=== PATIENT | female | born 1950 | race Caucasian/White ===

== ENCOUNTER → 2017-11-05 | Outpatient (CLI) | payer BC ==
--- NOTE | 2017-11-05 13:25 | MR ---
EXAMINATION TYPE: MR knee RT wo con DATE OF EXAM: 11/05/2017 COMPARISON: Plain film 10/12/2017 HISTORY: Pain in right knee TECHNIQUE: Multiplanar, multisequence imaging of the knee is performed without IV contrast. FINDINGS: MEDIAL MENISCUS: Posterior horn the medial meniscus shows some increased signal, difficult to exclude extension to the articular surface, sagittal #6 and 7 LATERAL MENISCUS: Some increased signal present in the posterior horn of the lateral meniscus may ext end to the articular surface on sagittal image 22 posteriorly, anterior horn is attenuated CRUCIATE LIGAMENTS: The anterior and posterior cruciate ligaments are intact and unremarkable. COLLATERAL LIGAMENTS: The medial collateral ligament and lateral collateral ligament complex are inta ct and unremarkable. EXTENSOR MECHANISM: Visualized quadriceps and patellar tendons are intact. EFFUSION: Suprapatellar joint effusion is small. POPLITEAL CYST: Semimembranosus gastrocnemius cyst is present measuring approximately 2.1 x 6 x 0.7 cm. TRICOMPARTMENT SPACES: Some joint space loss present in the lateral compartment greater than medial CARTILAGE: Grade 3 to grade IV chondromalacia lateral compartment and posterior patella BONE MARROW SIGNAL: Subchondral reactive marrow signal change suspected in the proximal tibia lateral ly OTHER: There is fluid signal noted posterior to the proximal fibula. Fluid signal present at the zaira gin of the gastrocnemius tendon lateral belly may be indicative of ganglion or tear, similar findings present at the medial belly origin which shows fluid signal as well as multi lobular cystic collecti on extending towards the metaphysis of the distal femur measuring 16 mm in greatest dimension with in ternal septation. IMPRESSION: Osteoarthritis and degenerative changes are suspected. Difficult to exclude meniscal tear, signal wit hin the posterior horns of the medial lateral menisci may be degenerative. Possible chronic tear of t he origin of the gastrocnemius tendon is medial lateral belly cyst described. Semimembranosus gastroc nemius cyst. Additional findings above.
== END ==
LOC: RADMRIMAIN 11:19
PROVIDERS: ATTEND Orthopaedic Surgery
DX: M25.461 Effusion, right knee (principal); M22.41 Chondromalacia patellae, right knee; R93.7 Abnormal findings on diagnostic imaging of other parts of musculoskeletal system

== ENCOUNTER → 2019-05-26 | Outpatient (CLI) | payer MEDICARE, BC ==
[2019-05-26 12:26] LABS: Potassium 4.8 mmol/L (3.5-5.1)
[2019-05-26 12:58] LABS: Basophils # (A) 0.1 k/uL (0-0.2); Basophils % (A) 1 %; Eosinophils # (A) 0.2 k/uL (0-0.7); Eosinophils % (A) 1 %; HCT 44.7 % (34.0-46.0); HGB 14.8 gm/dL (11.4-16.0); Lymphocytes # (A) 3.2 k/uL (1.0-4.8); Lymphocytes % (A) 26 %; MCH 29.9 pg (25.0-35.0); MCHC 33.1 g/dL (31.0-37.0); MCV 90.4 fL (80.0-100.0); Mean Platelet Volume 8.5; Monocytes # (A) 0.7 k/uL (0-1.0); Monocytes % (A) 6 %; Neutrophils # (A) 7.7 k/uL (1.3-7.7); Neutrophils % (A) 64 %; Platelet Count 289 k/uL (150-450); RBC 4.94 m/uL (3.80-5.40); RDW 12.2 % (11.5-15.5); WBC 12.1 k/uL (3.8-10.6)
== END | disposition home or self-care (01) ==
LOC: LABPAT 11:21
PROVIDERS: ATTEND Orthopaedic Surgery
DX: Z01.812 Encounter for preprocedural laboratory examination (principal); G56.02 Carpal tunnel syndrome, left upper limb
CPT/HCPCS: 36415; 80051; 85025

== ENCOUNTER 2019-06-08 14:11 | Day surgery (SDC) | payer MEDICARE, BC ==
[2019-06-07 09:14] VITALS: BMI 32.4
--- NOTE | 2019-06-07 14:59 | HP ---
HISTORY AND PHYSICAL DATE OF SURGERY: 06/08/2019 Bette Toscano is a 68-year-old patient seen with symptomatic left carpal tunnel syndrome. We discussed options for treatment. She elected to proceed with decompression left median nerve. Consent was obtained. PAST MEDICAL HISTORY: Hypertension, hyperlipidemia, yaz-grdlfho-fbjpsklph diabetes. PAST SURGICAL HISTORY: Appendectomy, carpal tunnel release, Cesarian section, lumpectomy. MEDICATIONS: Metoprolol, trazodone, Vytorin, metformin. ALLERGIES: None SOCIAL HISTORY: She currently smokes cigarettes. PHYSICAL EVALUATION OF THE LEFT HAND: She has a positive carpal compression and carpal Tinel's, which causes numbness and tingling throughout the median nerve distribution. There is some decreased sensation throughout the median nerve distribution. She is nontender along the A1 kirit site. She has good range of motion of her digits. RADIOGRAPHS OF THE LEFT HAND: Reveals some osteoarthritic changes an EMG left upper extremity revealed carpal tunnel syndrome. IMPRESSION: 1. Left carpal tunnel syndrome. 2. Hypertension. 3. Afu-ggaytcr-dgrkbivhx diabetes. 4. Hyperlipidemia. PLAN: Decompression of left median nerve. MMODL / IJN: [id number] /
[~2019-06-08 14:11] MED LIST: DEXAMETHASONE SOD PHOSPHATE 10 MG/ML 1 ML VIAL IV ONE; HYDROmorphone 0.5 MG/0.5 ML SYRINGE IVP PRN; LACTATED RINGERS 1,000 ML IV SCH; LIDOCAINE 1% 20 ML VIAL (10MG/ML) FOR IV START INTRADERMA PRN
[2019-06-08 14:50] VITALS: TEMP 97
[2019-06-08 14:55] LABS: Glucose,Whole Blood 133 mg/dL (75-99)
[2019-06-08] MEDS ORDERED: ONDANSETRON 4 MG/2 ML VIAL IVP ONE (14:59)
[2019-06-08] MEDS ORDERED: fentaNYL (PF) 50 MCG/ML 2 ML AMP ONE (17:03)
[2019-06-08] MEDS ORDERED: PROPOFOL 10 MG/ML 20 ML VIAL IV ONE (17:03)
[2019-06-08] MEDS ORDERED: MIDAZOLAM 2 MG/2 ML VIAL ONE (17:03)
[2019-06-08] MEDS ORDERED: BUPIVACAINE (PF) 0.25% 30 ML VIAL SQ ONE (17:06)
[2019-06-08] MEDS ORDERED: LACTATED RINGERS 1,000 ML IV ONE (17:37)
--- NOTE | 2019-06-08 17:37 | P.OP ---
Date of Procedure: 06/08/19 Preoperative Diagnosis: Left carpal tunnel syndrome Postoperative Diagnosis: Left carpal tunnel syndrome Procedure(s) Performed: Decompression left median nerve Anesthesia: MAC, local Surgeon: Pipe Dickson Estimated Blood Loss (ml): 0 Pathology: none sent Condition: stable Disposition: PACU Indications for Procedure: 68-year-old patient seen with symptomatic left carpal tunnel syndrome. After having treatment options discussed, she elected to proceed with decompression left median nerve. Operative Findings: See description of procedure Description of Procedure: The patient was taken to the operative suite. The patient received preoperative IV antibiotics. The patient underwent IV sedation by the department of anesthesia. A well-padded tourniquet placed proximal left upper extremity. Left upper extremity prepped and draped in the normal sterile orthopedic fashion. The proposed incision site was infiltrated with 10 mL quarter percent plain Marcaine. Once sufficient local analgesia was noted the extremity was elevated and tourniquet insufflated to 250. An incision was now made beginning at the distal volar wrist crease extending distally approximately 3 cm in line with the fourth metacarpal sharply through skin. We dissected down through the palmar fascia and identified the transverse carpal ligament. I now made a small incision through the transverse carpal ligament. I completed the release proximally and distally with blunt Metzenbaums. There was good complete release of the transverse carpal ligament. There was good hemostasis. The wound was irrigated. Skin margins were proximal nylon suture. We applied sterile dressings and sterile web roll. The tourniquet was released. Good capillary refill noted to all digits. Sterile Kendall bandages was applied. The patient was awakened, transferred to recovery stable condition.
[2019-06-08 17:51] VITALS: RESP 20
[2019-06-08 18:35] VITALS: BP 107/77; PULSE 88
== END 2019-06-08 18:40 | disposition home or self-care (01) ==
LOC: OR 14:11
PROVIDERS: ATTEND Orthopaedic Surgery
DX: G56.02 Carpal tunnel syndrome, left upper limb (principal); I25.10 Atherosclerotic heart disease of native coronary artery without angina pectoris; I10 Essential (primary) hypertension; E78.5 Hyperlipidemia, unspecified; E11.9 Type 2 diabetes mellitus without complications; F17.210 Nicotine dependence, cigarettes, uncomplicated; Z97.2 Presence of dental prosthetic device (complete) (partial); Z83.6 Family history of other diseases of the respiratory system; Z79.84 Long term (current) use of oral hypoglycemic drugs; Z79.899 Other long term (current) drug therapy; Z79.82 Long term (current) use of aspirin; Z91.040 Latex allergy status
CPT/HCPCS: 64721; J2250; J1100; J0690; J2405; J3010; J2704

== ENCOUNTER → 2019-11-15 | Outpatient (CLI) | payer MEDICARE, BC ==
--- NOTE | 2019-11-15 12:47 | BD ---
EXAMINATION TYPE: Axial Bone Density DATE OF EXAM: 11/15/2019 COMPARISON: 12.12.2013 CLINICAL HISTORY: 68 YR OLD FEMALE....ICD-10 CODE: Z78.0 POST MENOPAUSAL Height: 63 Weight: 199 FRAX RISK QUESTIONS: Family History (Parent hip fracture): YES Secondary Osteoporosis: YES 3. Menopause before 45: YES, AT AGE 45 Current Tobacco Use: YES RISK FACTORS HISTORY OF: Family History of Osteoporosis: YES, MOTHER HIP FX AND BONE CA TO FOLLOW Postmenopausal woman: YES, AT AGE 45 Take estrogen and/or progesterone medications: YES IN THE PAST, 1-2 YRS ONLY Lost more than 2 inches in height since high school: YES Hyperparathyroidism: NO Adrenal Insufficiency: NO MEDICATIONS: Additional Medications: MULTIVITAMIN, METFORMIN, REFLUX MEDS, STATIN FOR CHOLESTEROL, SLEEP AID THAT IS AN ANTIDEPRESSANT, BP MEDS, ASPIRIN HIGH DOSE Additional History: HYPERTENSION, DIABETIC, REFLUX, CHOLESTEROL, OSTEOARTHRITIS, EXAM MEASUREMENTS: Bone mineral densitometry was performed using the [employer] System. Bone mineral density as measured about the Lumbar spine is: ----- L1-L4(G/cm2): 0.986 T Score Values are as follows: ----- L1: -1.7 ----- L2: -2.0 ----- L3: -1.8 ----- L4: -1.2 ----- L1-L4: -1.6 Bone mineral density has: Decreased -7.1% since study of: 12.12.2013 Bone mineral density about the R hip (g/cm2): 0.868 Bone mineral density about the L hip (g/cm2): 0.919 T Score values are as follows: -----R Neck: -1.6 -----L Neck: -0.9 -----R Total: -1.1 -----L Total: -0.7 Bone mineral density has: Increased 1.9% since study of: 12.12.2013 FRAX%s: THERE IS A 15.9% CHANCE FOR A MAJOR OSTEOPOROTIC FX AND A 2.5% FOR HIP.....PROBABILITY FOR FX IN 10 YRS TIME IMPRESSION: Osteopenia NOTE: T-SCORE=SD OF THE YOUNG ADULT MEAN.
--- NOTE | 2019-11-16 09:15 | MM ---
Reason for exam: screening (asymptomatic). Last mammogram was performed 4 years and 7 months ago. History: Patient is postmenopausal, has history of high-risk lesion on a previous biopsy at age 59, and had first child at age 37. Family history of breast cancer in mother at age 60 and breast cancer in paternal grandmother at age 70. High risk US right guided VAD of the right breast, August 11, 2010. Benign left mammotome panel of the left breast, August 21, 2005. Benign excisional biopsy of the right breast, 1989. Benign excisional biopsy of the right breast, 1979. Took estrogen for 1 year beginning at age 46. Physical Findings: A clinical breast exam by your physician is recommended on an annual basis and results should be correlated with mammographic findings. MG 3D Screening Mammo W/Cad Bilateral CC and MLO view(s) were taken. Prior study comparison: April 19, 2015, bilateral MG screening mammo w CAD. There are scattered fibroglandular densities. No significant changes when compared with prior studies. ASSESSMENT: Benign, BI-RAD 2 RECOMMENDATION: Routine screening mammogram of both breasts in 1 year.
== END | disposition home or self-care (01) ==
LOC: RADMAMWWP 09:34
PROVIDERS: ATTEND Family Medicine
DX: Z12.31 Encounter for screening mammogram for malignant neoplasm of breast (principal); M81.8 Other osteoporosis without current pathological fracture; Z78.0 Asymptomatic menopausal state
CPT/HCPCS: 77063; 77067; 77080

== ENCOUNTER → 2020-04-09 | Outpatient (CLI) | payer MEDICARE, BC ==
[2020-04-09 20:22] LABS: Hemoglobin A1C 5.9 % (4.0-6.0)
[2020-04-09 20:55] LABS: African American GFR (CKD) 103.9 (60.0-200.0); Albumin 4.4 g/dL (3.80-4.90); Albumin/Globulin Ratio 3.14 (1.60-3.17); Anion Gap 10.5 mmol/L (4.00-12.00); Calcium 9.7 mg/dL (8.7-10.3); Carbon Dioxide 24.5 mmol/L (21.6-31.8); Chol/HDL Ratio 3.24; Globulin 1.4 g/dL (1.6-3.3); LDL Cholesterol,Calculated 31.8 mg/dL (0.0-131.0); Non-African American GFR(CKD) 89.7 (60.0-200.0); Potassium 4.3 mmol/L (3.5-5.5); Total Bilirubin 0.4 mg/dL (0.2-1.2); Total Protein 5.8 g/dL (6.2-8.2); VLDL Calculation 44.2 mg/dL (5.00-40.00)
== END | disposition home or self-care (01) ==
LOC: LABWHC1 10:10
PROVIDERS: ATTEND Family Medicine
DX: I10 Essential (primary) hypertension (principal); E11.40 Type 2 diabetes mellitus with diabetic neuropathy, unspecified; E78.00 Pure hypercholesterolemia, unspecified
CPT/HCPCS: 36415; 80053; 80061; 83036

== ENCOUNTER → 2020-06-26 | Outpatient (CLI) | payer MEDICARE ==
--- NOTE | 2020-06-26 16:20 | US ---
EXAMINATION TYPE: US kidneys/renal and bladder DATE OF EXAM: 06/26/2020 COMPARISON: NONE CLINICAL HISTORY: R10.9 Rt Flank Pain. rt flank pain EXAM MEASUREMENTS: Right Kidney: 9.4 x 4.7 x 5.5 cm Left Kidney: 10.0 x 4.8 x 7.1 cm Right Kidney: multiple cysts,largest = 4.7cm laterally , dominant cyst is anechoic and shows increase d through transmission, imperceptible wall as does a smaller Left Kidney: 2.7cm inferior pole cyst seen is also meeting criteria for a simple cyst Bladder: Anechoic, contracted Cortical medullary differentiation is maintained bilaterally. IMPRESSION: Simple cysts bilateral kidneys
== END | disposition home or self-care (01) ==
LOC: RADUSWWP 13:28
PROVIDERS: ATTEND Family Medicine
DX: N28.1 Cyst of kidney, acquired (principal)
CPT/HCPCS: 76770

== ENCOUNTER 2020-10-18 16:38 | Emergency (ER) | payer MEDICARE ==
[2020-10-18 16:42] VITALS: RESP 18
[2020-10-18] MEDS ORDERED: LIDOCAINE 5% PATCH TOPICAL STA (17:11)
--- NOTE | 2020-10-18 18:11 | XR ---
EXAMINATION TYPE: XR ribs RT w pa chest xray DATE OF EXAM: 10/18/2020 COMPARISON: NONE HISTORY: Right lateral rib pain TECHNIQUE: 5 views FINDINGS: The heart and mediastinum are normal. Lungs are clear of infiltrate. There is no heart fail ure. There is focal scarring or subsegmental atelectasis left lung base. There is no pleural effusion . There is no pneumothorax. The right shoulder joint appears intact. There is slight widening of the AC joint space that could relate to old ligamentous injury. I see no evidence of a rib fracture. IMPRESSION: No active cardiopulmonary disease. No evidence of rib fracture.
--- NOTE | 2020-10-18 18:20 | ED ---
Abdominal Pain HPI - General Chief Complaint: Abdominal Pain Stated Complaint: rt sided abd pain Time Seen by Provider: 10/18/20 16:47 Source: patient Mode of arrival: ambulatory Limitations: no limitations - History of Present Illness Initial Comments: 69-year-old female presents to emergency Department with a chief complaint of right-sided rib pain. States the pain has been ongoing for the past several months. States over a month ago she's had an ultrasound of the right upper quadrant areas, kidneys and an x-ray of the right-sided ribs with no acute finding. States she also seen a urologist who does not believe her pain is coming from the kidneys. Patient states the pain seems to be positional in nature and exacerbated when the area is palpated. She states the pain is sharp and feels like spasms. She denies any chest pain or shortness of breath fevers or chills. Denies any diaphoretic episodes nausea vomiting diarrhea. Pain does not appear to be postprandial in nature. Denies any urinary or vaginal symptoms. - Related Data Home Medications Medication Instructions Recorded Confirmed Aspirin 325 mg PO DAILY 04/24/14 06/08/19 Ezetimibe/Simvastatin [Vytorin 1 each PO HS 04/24/14 06/08/19 10-40 mg Tablet] Metoprolol Tartrate [Lopressor] 50 mg PO BID 04/24/14 06/08/19 Multivitamins, Thera [Multivitamin] 1 each PO DAILY 04/24/14 06/08/19 traZODone HCL 100 mg PO HS 04/24/14 06/08/19 metFORMIN HCL [Glucophage] 500 mg PO BID 11/01/18 06/08/19 traZODone HCL 50 mg PO QAM 06/07/19 06/08/19 Previous Rx's Medication Instructions Recorded Hydrocodone/Acetaminophen [[place] 1 each PO Q6HR PRN #12 tab 06/08/19 5-325] Allergies Allergy/AdvReac Type Severity Reaction Status Date / Time latex Allergy Unknown Rash/Hives Verified 10/18/20 16:43 Review of Systems ROS Statement: Those systems with pertinent positive or pertinent negative responses have been documented in the HPI. ROS Other: All systems not noted in ROS Statement are negative. Past Medical History Past Medical History: Diabetes Mellitus, Hyperlipidemia, Hypertension History of Any Multi-Drug Resistant Organisms: None Reported Past Surgical History: Appendectomy, Section, Tonsillectomy Past Psychological History: No Psychological Hx Reported Smoking Status: Never smoker Past Alcohol Use History: None Reported Past Drug Use History: None Reported General Exam Limitations: no limitations General appearance: alert, in no apparent distress Head exam: Present: atraumatic, normocephalic, normal inspection Eye exam: Present: normal appearance, PERRL, EOMI Pupils: Present: normal accommodation ENT exam: Present: normal exam, normal oropharynx, mucous membranes moist Neck exam: Present: normal inspection, full ROM. Absent: tenderness Respiratory exam: Present: normal lung sounds bilaterally, chest wall tenderness (Localized tenderness over the lateral right ribs.). Absent: respiratory distress, wheezes, rales, rhonchi, stridor Cardiovascular Exam: Present: regular rate, normal rhythm, normal heart sounds. Absent: systolic murmur GI/Abdominal exam: Present: soft. Absent: distended, tenderness (No right upper quadrant tenderness), guarding Extremities exam: Present: normal inspection, full ROM, normal capillary refill. Absent: tenderness, pedal edema, joint swelling Back exam: Present: normal inspection, full ROM. Absent: tenderness, CVA tenderness (R), CVA tenderness (L) Neurological exam: Present: alert, oriented X3 Psychiatric exam: Present: normal affect, normal mood Skin exam: Present: warm, dry, intact, normal color Course Vital Signs 10/18/20 10/18/20 16:39 16:52 Temperature 97.9 F 99.2 F Pulse Rate 79 76 Respiratory 18 18 Rate Blood Pressure 146/73 147/68 O2 Sat by Pulse 98 96 Oximetry Medical Decision Making - Medical Decision Making 69-year-old female presents to the emergency department with a chief complaint of right-sided rib pain. Physical examination, localized tenderness to the right lateral ribs. There is no overlying skin changes. She does not think chest pain or shortness of breath. Vital signs are within normal limits. Patient is given a Lidoderm patch with some improvement in symptoms. X-ray of the right side of the ribs and chest seems to be unremarkable. I suspect is musculoskeletal pain. Patient will be discharged with Flexeril. Advised to follow with the primary care physician. Return parameters were thoroughly discussed the patient was in a standing agreeable. Case discussed with Dr.Bay craig Disposition Clinical Impression: Rib pain on right side Disposition: HOME SELF-CARE Condition: Stable Instructions (If sedation given, give patient instructions): Rib Contusion (ED) Additional Instructions: Alternate between Tylenol and Motrin for pain control. Take prescribed medication as directed. Return to emergency department if symptoms worsen. Is patient prescribed a controlled substance at d/c from ED?: No Referrals: Lexii Stuart MD [Primary Care Provider] - 1-2 days Time of Disposition: 18:23
[2020-10-18] MEDS ORDERED: ACET/COD 300 MG/30 MG STARTER PACK 6 TAB BTL PO STA (18:23)
[2020-10-18 18:27] VITALS: BP 117/85; PULSE 75
[2020-10-18] MEDS ORDERED: CYCLOBENZAPRINE 10MG STARTER 3 TAB BTL PO STA (18:27)
[2020-10-18 18:31] VITALS: TEMP 97.8
== END 2020-10-18 18:40 | disposition home or self-care (01) ==
LOC: EC 16:38
DX: R07.81 Pleurodynia (principal); E11.9 Type 2 diabetes mellitus without complications; E78.5 Hyperlipidemia, unspecified; I10 Essential (primary) hypertension; Z90.89 Acquired absence of other organs; Z90.09 Acquired absence of other part of head and neck; Z79.82 Long term (current) use of aspirin; Z79.84 Long term (current) use of oral hypoglycemic drugs
CPT/HCPCS: 99283

== ENCOUNTER → 2022-01-06 | Outpatient (CLI) | payer MEDICARE ==
--- NOTE | 2022-01-16 09:54 | MM ---
Reason for Exam: Screening (asymptomatic). Last mammogram was performed 2 year(s) and 2 month(s) ago. Patient History: Menarche at age 14. First Full-Term at age 37. Late child-bearing (after 30). Postmenopausal. Estrogen for 1 year from age 46 until age 47. 1989, Benign Excisional Biopsy on the right side. 1979, Benign Excisional Biopsy on the right side. 08/11/2010, High risk Core Biopsy on the right side. 08/21/2005, Benign Core Biopsy on the left side. Paternal grandmother had breast cancer, age 70. Mother had breast cancer, age 60. Risk Values: Santa 5 year model risk: 5.2%. NCI Lifetime model risk: 15.3%. Prior Study Comparison: 12/21/2013 Left Diagnostic Mammogram, [facility]. 04/19/2015 Bilateral Screening Mammogram, [facility]. 11/15/2019 Bilateral Screening Mammogram, [facility]. Tissue Density: The breast tissue is heterogeneously dense. This may lower the sensitivity of mammography. Findings: Analyzed By CAD. There is no suspicious group of microcalcifications or new suspicious mass in either breast. Overall Assessment: Benign, BI-RAD 2 Management: Screening Mammogram of both breasts in 1 year. A clinical breast exam by your physician is recommended on an annual basis and results should be correlated with mammographic findings. Electronically signed and approved by: Ricardo Francois M.D. Radiologis
== END | disposition home or self-care (01) ==
LOC: RADMAMWWP 21:22
PROVIDERS: ATTEND Family Medicine
DX: Z12.31 Encounter for screening mammogram for malignant neoplasm of breast (principal)
CPT/HCPCS: 77063; 77067

== ENCOUNTER 2022-01-29 09:24 | Day surgery (SDC) | payer MEDICARE ==
[2022-01-27 15:26] VITALS: BMI 33.3
[~2022-01-29 09:24] MED LIST changes: -DEXAMETHASONE SOD PHOSPHATE 10 MG/ML 1 ML VIAL IV ONE; -HYDROmorphone 0.5 MG/0.5 ML SYRINGE IVP PRN; +LIDOCAINE 1% (10MG/ML) FOR IV START INTRADERMA PRN; -LIDOCAINE 1% 20 ML VIAL (10MG/ML) FOR IV START INTRADERMA PRN
[2022-01-29] MEDS ORDERED: LACTATED RINGERS 1,000 ML IV ONE (09:44)
[2022-01-29 09:46] VITALS: TEMP 97.3
[2022-01-29 09:54] LABS: Glucose,Whole Blood 172 mg/dL (70-110)
[2022-01-29] MEDS ORDERED: PROPOFOL 10 MG/ML 20 ML VIAL IV ONE (10:27)
--- NOTE | 2022-01-29 10:29 | P.GSHP ---
History of Present Illness H&P Date: 01/29/22 Chief Complaint: Screening colonoscopy Is a 71-year-old female who presents today for screening colonoscopy. Patient denies any significant GI complaints. Past Medical History Past Medical History: Diabetes Mellitus, Hyperlipidemia, Hypertension Additional Past Medical History / Comment(s): DIABETIC NEUROPATHY History of Any Multi-Drug Resistant Organisms: None Reported Past Surgical History: Appendectomy, Section, Heart Catheterization, Orthopedic Surgery, Tonsillectomy, Tubal Ligation Additional Past Surgical History / Comment(s): COLONOSCOPY. MULTIPLE HEART CATHS. BILAT CTR. RT ROTATOR CUFF REPAIR. RT BREAST LUMPECTOMY-BENIGN. BILAT CATARACTS REMOVED WITH LENS IMPLANTS Past Anesthesia/Blood Transfusion Reactions: No Reported Reaction Smoking Status: Current every day smoker - Past Family History Sister(s) Family Medical History: Cancer Additional Family Medical History / Comment(s): BLADDER Brother(s) Family Medical History: Cancer Additional Family Medical History / Comment(s): STOMACH Mother Family Medical History: Cancer Additional Family Medical History / Comment(s): BREAST CANCER WITH METS Medications and Allergies Home Medications Medication Instructions Recorded Confirmed Type Aspirin 325 mg PO DAILY 04/24/14 01/27/22 History Ezetimibe/Simvastatin [Vytorin 1 each PO Q2D 04/24/14 01/27/22 History 10-40 mg Tablet] Metoprolol Tartrate [Lopressor] 50 mg PO BID 04/24/14 01/27/22 History metFORMIN HCL [Glucophage] 1,000 mg PO [id number]-[id number] 11/01/18 01/27/22 History traZODone HCL 150 mg PO QAM 06/07/19 01/27/22 History Gabapentin 800 mg PO TID 01/27/22 01/27/22 History metFORMIN HCL 500 mg PO AC-SUPPER 01/27/22 01/27/22 History Allergies Allergy/AdvReac Type Severity Reaction Status Date / Time No Known Allergies Allergy Verified 01/27/22 14:59 Surgical - Exam Vital Signs Temp Pulse Resp BP Pulse Ox 97.3 F L 96 18 152/80 97 01/29/22 09:45 01/29/22 09:45 01/29/22 09:45 01/29/22 09:45 01/29/22 09:45 - General well developed, well nourished, no distress - Eyes PERRL - ENT normal pinna - Neck no masses - Respiratory normal expansion - Cardiovascular Rhythm: regular - Abdomen Abdomen: soft, non tender Results - Labs Abnormal Lab Results - Last 24 Hours (Table) 01/29/22 Range/Units 09:52 POC Glucose (mg/dL) 172 H (70-110) mg/dL Assessment and Plan Assessment: We'll perform screening colonoscopy
--- NOTE | 2022-01-29 10:44 | P.OP ---
Date of Procedure: 01/29/22 Preoperative Diagnosis: Screening colonoscopy Postoperative Diagnosis: Mild diverticulosis External hemorrhoids Procedure(s) Performed: Colonoscopy Anesthesia: MAC Surgeon: Servando Gaffney Pathology: none sent Condition: stable Disposition: PACU Description of Procedure: The patient's placed on the endoscopy table in the lateral position. She received IV sedation. Digital rectal exam was performed which revealed external hemorrhoids. The flexible colonoscope was then placed patient anus and passed throughout the entire colon. The ileocecal valve was visualized. The cecum, ascending and transverse colon appeared normal. The descending and sigmoid colon had a few scattered diverticuli. The scope was then brought back the rectum and this appeared normal. The scope was withdrawn for patient.
[2022-01-29 11:06] VITALS: BP 146/80; PULSE 73; RESP 16
== END 2022-01-29 11:30 | disposition home or self-care (01) ==
LOC: ORWHC2ENDO 09:24
PROVIDERS: ATTEND Surgery
DX: Z12.11 Encounter for screening for malignant neoplasm of colon (principal); K57.30 Diverticulosis of large intestine without perforation or abscess without bleeding; E11.9 Type 2 diabetes mellitus without complications; I10 Essential (primary) hypertension; E78.5 Hyperlipidemia, unspecified; Z95.5 Presence of coronary angioplasty implant and graft; G62.9 Polyneuropathy, unspecified; F17.200 Nicotine dependence, unspecified, uncomplicated; Z79.82 Long term (current) use of aspirin; Z79.84 Long term (current) use of oral hypoglycemic drugs; Z79.899 Other long term (current) drug therapy; K21.9 Gastro-esophageal reflux disease without esophagitis
CPT/HCPCS: J2704; G0121; 45378

== ENCOUNTER → 2023-01-13 | Outpatient (CLI) | payer MEDICARE | END | disposition home or self-care (01) | LOC: RADCTMAIN 11:24 | PROVIDERS: ATTEND Family Medicine | DX: Z53.9 Procedure and treatment not carried out, unspecified reason (principal) ==

== ENCOUNTER → 2023-01-13 | Outpatient (CLI) | payer MEDICARE ==
--- NOTE | 2023-01-13 13:52 | CTL ---
EXAMINATION TYPE: CT Low Dose Lung DATE OF EXAM: 01/13/2023 11:56 AM CLINICAL INDICATION:Female, 72 years old with history of Z87.891 PERSONAL HISTORY OF NICOTINE DEPEND ENCE; Personal history of tobacco use. , history of tobacco use. COMPARISON: None TECHNIQUE: Multiple axial non-contrast scans were obtained from approximately the lung apices through the upper abdomen. Coronal and sagittal reformatted images were obtained. Low dose technique was uti lized. CT DLP: 86.8 mGycm, Automated exposure control for dose reduction was used. CT Contrast: Contrast used: None Oral contrast used: None FINDINGS: ======== Lack of intravenous contrast and low dose technique limits the evaluation of the vascular and soft ti ssue structures. LUNGS: No evidence of pulmonary fibrosis. No evidence of focal consolidation, pneumothorax or pleural effusion. Mild centrilobular emphysema changes. Nodules: RUL: None. RML: None. RLL: None. GAMA: Calcified granuloma LLL: None. AIRWAY: Patent and unremarkable. HEART: Size within normal limits. Moderate coronary artery atherosclerosis. MEDIASTINUM: No gross evidence of adenopathy. VASCULATURE: No aortic aneurysm. Atherosclerosis of the arterial vasculature. MUSCULOSKELETAL: No acute osseous abnormalities SOFT TISSUES/LYMPH NODES: Unremarkable. LOWER NECK: No significant findings. UPPER ABDOMEN: No significant findings. IMPRESSION: 1. No clinically significant pulmonary nodules. 2. Mild emphysema changes. CT LUNG RAD AND CT CHEST RECOMMENDATION: Lung-Rad 2 Benign Appearance or Behavior: Continue annual sc reening with LDCT in 12 months. S Modifier (other clinically significant findings): None Recommend smoking cessation (if current smoker), or continuation of smoking cessation (if prior smoke r). Annual screening for lung cancer with low-dose computed tomography is recommended in adults ages 55 to 77 years who have a 30 pack-year smoking history and currently smoke or have quit within the pa st 15 years. Screening should be discontinued once a person has not smoked for 15 years or develops a health problem that substantially limits life expectancy or the ability or willingness to have curat robe lung surgery. Lung rads 2021 [email or web address]
--- NOTE | 2023-01-13 16:43 | BD ---
EXAMINATION TYPE: Axial Bone Density DATE OF EXAM: 01/13/2023 CLINICAL HISTORY: 72 years old Female. ICD-10 CODE: M8588 DISORDER OF BONE Height: 64 Weight: 190 FRAX RISK QUESTIONS: Alcohol (3 or more units per day): no Family History (Parent hip fracture): yes, mother History of Fracture in Adulthood: no Secondary Osteoporosis: yes 3. Menopause before 45: yes, 44 natural Current Tobacco Use: yes RISK FACTORS HISTORY OF: Family History of Osteoporosis: no Active: yes Diet low in dairy products/other sources of calcium: no Postmenopausal woman: yes Lost more than 2 inches in height since high school: no Frequent falls: no Poor Health: no MEDICATIONS: Additional Medications: yes diabetic med, hbp, cholesterol, Neurontin, sleep aid , 325 aspirin EXAM MEASUREMENTS: Bone mineral densitometry was performed using the [employer] System. Bone mineral density as measured about the Lumbar spine is: ----- L1-L4(G/cm2): 1.035 T Score Values are as follows: ----- L1: -1.6 ----- L2: -1.0 ----- L3: -1.3 ----- L4: -1.1 ----- L1-L4: -1.2 Z Score Values are as follows: ----- L1: -0.6 ----- L2: -0.1 ----- L3: -0.3 ----- L4: -0.1 ----- L1-L4: -0.2 Bone mineral density has: Increased 5.0% since study of: 11/15/2019 Bone mineral density about the R hip (g/cm2): 0.845 Bone mineral density about the L hip (g/cm2): 0.900 T Score values are as follows: -----R Neck: -1.5 -----L Neck: -1.1 -----R Total: -1.3 -----L Total: -0.9 Z Score values are as follows: -----R Neck: -0.3 -----L Neck: 0.2 -----R Total: -0.3 -----L Total: 0.1 Bone mineral density has: Decreased -2.4% since study of: 11/15/2019 FRAX%s: The graph provided illustrates a 15.7% chance for a major osteoporotic fx and a 4.6% chance f or the hips probability for fx in 10 years time. IMPRESSION: Osteopenia (T Score between -2.5 and -1). There is slightly increased risk of fracture and the patient may be considered for treatment. Re-Screen 2-5 years. NOTE: T-SCORE=SD OF THE YOUNG ADULT MEAN.
--- NOTE | 2023-01-14 22:37 | MM ---
Reason for Exam: Screening (asymptomatic). Last screening mammogram was performed 12 month(s) ago. Patient History: Menarche at age 14. First Full-Term at age 37. Late child-bearing (after 30). Postmenopausal. Estrogen for 1 year from age 46 until age 47. 1989, Benign Excisional Biopsy on the right side. 1979, Benign Excisional Biopsy on the right side. 08/11/2010, High risk Core Biopsy on the right side. 08/21/2005, Benign Core Biopsy on the left side. Paternal grandmother had breast cancer, age 70. Mother had breast cancer, age 60. Risk Values: Santa 5 year model risk: 5.2%. NCI Lifetime model risk: 14.6%. Prior Study Comparison: 12/12/2013 Bilateral Screening Mammogram, [facility]. 12/21/2013 Left Diagnostic Mammogram, [facility]. 04/19/2015 Bilateral Screening Mammogram, [facility]. 11/15/2019 Bilateral Screening Mammogram, [facility]. 01/06/2022 Bilateral MG 3D screening mammo w/cad, [facility]. Tissue Density: There are scattered fibroglandular densities. Findings: Analyzed By CAD. On the right, there is stable 12:00 focal asymmetry. Redemonstrated benign bilateral oil cyst calcifications as well as benign left-sided secretory calcifications. Microclip in the left breast from prior biopsy. There is no suspicious group of microcalcifications or new suspicious mass in either breast. Overall Assessment: Benign, BI-RAD 2 Management: Screening Mammogram of both breasts in 1 year. See note below in regards to patient's increased 5 year Santa score. Patient should continue monthly self-breast exams. A clinical breast exam by your physician is recommended on an annual basis. This exam should not preclude additional follow-up of suspicious palpable abnormalities. Note on Santa scores and lifetime risk: 1. A Santa score greater than 3% is considered moderate risk. If this is the case, consider specialist referral to assess eligibility for a risk reducing agent. 2. If overall lifetime risk for the development of breast cancer is 20% or higher, the patient may qualify for future screening with alternating mammogram and breast MRI. Electronically signed and approved by: Lucita Arvizu M.D. Radiologist
== END | disposition home or self-care (01) ==
LOC: RADMAMWWP 11:27
PROVIDERS: ATTEND Family Medicine
DX: Z12.31 Encounter for screening mammogram for malignant neoplasm of breast (principal); Z12.2 Encounter for screening for malignant neoplasm of respiratory organs; J43.2 Centrilobular emphysema; M85.89 Other specified disorders of bone density and structure, multiple sites; Z80.3 Family history of malignant neoplasm of breast; Z78.0 Asymptomatic menopausal state; Z87.891 Personal history of nicotine dependence
CPT/HCPCS: 71271; 77063; 77067; 77080

== ENCOUNTER → 2023-11-10 | Outpatient (CLI) | payer MEDICARE ==
--- NOTE | 2023-11-10 09:56 | US ---
EXAMINATION TYPE: US abdomen limited DATE OF EXAM: 11/10/2023 COMPARISON: 06/26/2020 US Renal CLINICAL INDICATION: Female, 72 years old with history of R10.11 RUQ PAIN; X few years; Hx HTN and DM ; Patient denies any other signs, symptoms, or relevant history TECHNIQUE: Multiple sonographic images of the right upper quadrant are obtained. FINDINGS: EXAM MEASUREMENTS: Liver Length: 14.0 cm Gallbladder Wall: 0.2 cm CBD: 0.6 cm Right Kidney: 11.0 x 5.7 x 5.2 cm Pancreas: wnl Liver: wnl Gallbladder: 30 shadowing in the gallbladder fundus anteriorly within the nondependent portion ? Air seen at anterior fundus Evidence for sonographic Butler's sign: No CBD: wnl Right Kidney: Multiple simple cysts seen, largest = 6.1 x 5.7 x 5.4 cm; Calcifications seen upper po le IMPRESSION: 1. No evidence for acute process. 2. Focus of gas possibly within the gallbladder. Consider further evaluation with CT imaging and/or MRCP. Finding could represent patulous sphincter of Hung.
== END | disposition home or self-care (01) ==
LOC: RADUSWWP 08:54
PROVIDERS: ATTEND Family Medicine
DX: R10.11 Right upper quadrant pain (principal); I10 Essential (primary) hypertension; E11.9 Type 2 diabetes mellitus without complications
CPT/HCPCS: 76705

== ENCOUNTER → 2024-02-16 | Outpatient (CLI) | payer MEDICARE ==
[2024-02-16 16:01] LABS: African American GFR (CKD) 85 (>60 ml/min/1.73 sqM); Blood Urea Nitrogen 16 mg/dL (7-17); Non-African American GFR(CKD) 74 (>60 ml/min/1.73 sqM)
--- NOTE | 2024-02-17 11:13 | CT ---
EXAMINATION TYPE: CT abdomen pelvis w con CT DLP: 1291 mGycm, Automated exposure control for dose reduction was used. DATE OF EXAM: 02/16/2024 5:20 PM COMPARISON: None CLINICAL INDICATION: Female, 73 years old with history of K81.0 acute cholecystitis; TECHNIQUE: Axial CT abdomen pelvis w con;Sagittal and coronal reformats were created on a separate w orkstation. Contrast used: mL of , (none if empty) Oral contrast used: (none if empty) FINDINGS: LOWER CHEST: Unremarkable ABDOMEN LIVER: Unremarkable GALLBLADDER AND BILE DUCTS: The gallbladder is nondistended. No evidence for ductal dilation. PANCREAS: Unremarkable. SPLEEN: Unremarkable. ADRENAL GLANDS: Unremarkable. KIDNEYS AND URETERS: Hyperdense right renal cysts measuring 25 mm. Additional simple appearing renal cysts bilaterally. No obstructive uropathy. No calculi visualized. PELVIS BLADDER: Unremarkable REPRODUCTIVE: Bilateral tubal ligation clips. ABDOMEN & PELVIS STOMACH AND BOWEL: No evidence of bowel obstruction. PERITONEUM/RETROPERITONEUM: No evidence of pneumoperitoneum or free fluid. VASCULATURE: Mild atherosclerotic calcifications are present throughout the abdominal aorta and its b ranches. No evidence of aortic aneurysm. MUSCULOSKELETAL: No acute osseous abnormalities. Moderate disc degeneration changes are present throu ghout the thoracolumbar spine. LYMPH NODES: No gross evidence for lymphadenopathy. SOFT TISSUE/ABDOMINAL WALL: Unremarkable IMPRESSION: 1. Nondistended gallbladder No evidence for acute cholecystitis. 2. Right renal cysts one of which is indeterminate. Renal mass protocol MRI recommended for complete evaluation of 25 mm lesion. [facility], , 02/17/2024 11:11 AM
== END ==
LOC: RADCTMAIN 15:00
PROVIDERS: ATTEND Surgery
CPT/HCPCS: 36415; 74177; 82565; 84520

== ENCOUNTER → 2024-02-25 | Outpatient (CLI) | payer MEDICARE ==
--- NOTE | 2024-02-25 08:36 | MM ---
Reason for Exam: Screening (asymptomatic). Last mammogram was performed 1 year(s) and 1 month(s) ago. Patient History: Menarche at age 14. First Full-Term at age 37. Late child-bearing (after 30). Postmenopausal. Estrogen for 1 year from age 46 until age 47. 1989, Benign Excisional Biopsy on the right side. 1979, Benign Excisional Biopsy on the right side. 08/11/2010, High risk Core Biopsy on the right side. 08/21/2005, Benign Core Biopsy on the left side. Paternal grandmother had breast cancer, age 70. Mother had breast cancer, age 60. Risk Values: Santa 5 year model risk: 5.3%. NCI Lifetime model risk: 14.0%. Prior Study Comparison: 11/15/2019 Bilateral Screening Mammogram, [facility]. 01/06/2022 Bilateral MG 3D screening mammo w/cad, [facility]. 01/13/2023 Bilateral MG 3D screening mammo w/cad, [facility]. Tissue Density: The breasts are heterogeneously dense, which may obscure small masses. Findings: Analyzed By CAD. There is no suspicious group of microcalcifications or new suspicious mass in either breast. Overall Assessment: Benign, BI-RAD 2 Management: Screening Mammogram of both breasts in 1 year. . Patient should continue monthly self-breast exams. A clinical breast exam by your physician is recommended on an annual basis. This exam should not preclude additional follow-up of suspicious palpable abnormalities. Note on Santa scores and lifetime risk: 1. A Santa score greater than 3% is considered moderate risk. If this is the case, consider specialist referral to assess eligibility for a risk reducing agent. 2. If overall lifetime risk for the development of breast cancer is 20% or higher, the patient may qualify for future screening with alternating mammogram and breast MRI. [facility], , 02/25/2024 8:32 AM. Electronically signed and approved by: Ricardo Francois M.D. Radiologis
--- NOTE | 2024-02-25 09:27 | CTL ---
EXAMINATION TYPE: CT Low Dose Lung DATE OF EXAM ORDERED: 02/25/2024 COMPARISON: 01/13/2023 HISTORY: . Low Dose CT Lung Screening CT DLP: 117.[address] CTDI: 3.0 mGy IV CONTRAST USED: None. SCREENING VISIT: First visit COMPARISON: None. TECHNIQUE: Low dose computed tomography scan was performed through the chest at 1 millimeter thick se ctions and reconstructed images in the coronal plane at [address] DIAGNOSTIC QUALITY: Satisfactory FINDINGS: LUNG NODULES: 4 mm nodule right upper lobe anteriorly image 72. 3 mm pulmonary nodule periphery of th e right upper lobe image 124. 3 mm left upper lobe pulmonary nodule posteriorly image 45. LUNGS: COPD: Severity: None Fibrosis: Severity:None Lymph nodes: None Other findings: None RIGHT PLEURAL SPACE: Effusion: None Calcification: None Thickening: None Pneumothorax: None LEFT PLEURAL SPACE: Effusion: None Calcification: None Thickening: None Pneumothorax: None HEART: Heart Size: Mildly enlarged Coronary calcification: Mild Pericardial effusion: None OTHER FINDINGS: Upper abdomen: No significant abnormality Bony thorax: Degenerative changes Supraclavicular region: No significant abnormalityOther: No significant abnormalityI IMPRESSION: Scattered sub-5 mm pulmonary nodules. FOLLOW UP CT CHEST RECOMMENDATION: Follow-up screening in one year CT LUNG RAD: LUNG RAD CATEGORY 2 benign appearance and/or behavior. [facility], , 02/25/2024 8:09 AM
== END | disposition home or self-care (01) ==
LOC: RADCTMAIN 06:37
PROVIDERS: ATTEND Family Medicine
CPT/HCPCS: 71271; 77063; 77067

== ENCOUNTER → 2024-07-07 | Outpatient (CLI) | payer MEDICARE ==
--- NOTE | 2024-07-07 08:45 | MR ---
EXAMINATION TYPE: MR abdomen wo/w con DATE OF EXAM: 07/07/2024 6:57 AM INDICATION: Patient age:Female; 73 years old; Reason for study: N28.89 OTHER SPECIFIED DISORDERS OF KIDNEY AND URE; [facility]. COMPARISON: CT abdomen and pelvis 02/16/2024, abdominal ultrasound 11/10/2023 TECHNIQUE: Multiplanar multi-sequence imaging was performed without and with IV contrast. The patien t was given 8 ccs of Gadobutrol intravenously and dynamic imaging was performed. Post IV contrast sub traction images were also submitted for review. FINDINGS: LOWER CHEST: No gross irregularity. ABDOMEN Liver: There are approximately 4 subcentimeter arterial enhancing foci within the periphery of the le ft and right hepatic lobes. Examples include a 5 mm focus within the anterior inferior left hepatic l obe (series 901, image 301). And along the periphery of the anterior right hepatic lobe measuring up to 3 mm (series 901, image 371). Posterior right hepatic lobe 8 mm lesion (series 1001, image 108). Gallbladder and Bile ducts: No biliary ductal dilatation. No choledocholithiasis. No gallstones. Gall bladder adenomyomatosis. Pancreas: Unremarkable. Spleen: Unremarkable. Adrenal glands: Unremarkable. Kidneys: No hydronephrosis. Multiple bilateral T2 hyperintense bilateral renal cysts with the largest in the right kidney measuring 6.8 cm. Largest within the left kidney measured at 2.2 cm. There are a pproximately 4 T2 hypointense/T1 hyperintense lesions involving the right kidney with largest in the midportion exophytic lesion measuring 2.4 cm. Additionally there are approximately 4 T2 hypointense/T 1 hyperintense lesions involving the left kidney with largest exophytically in the inferior pole albert uring up to 3.2 cm. None of these lesions demonstrate convincing enhancement. The kidneys enhance sym metrically. Stomach and Bowel: Unremarkable as visualized. Peritoneum: No evidence of pneumoperitoneum, free fluid, or adenopathy. Vasculature: No aortic aneurysm. Mild to moderate atherosclerotic calcification of the aorta. Abdominal wall: Unremarkable. Musculoskeletal: The osseous structures appear intact. IMPRESSION: 1. Multiple bilateral renal T2 hyperintense Bosniak 1 cyst with additional T1 hyperintense proteinace ous/hemorrhagic Bosniak 2 cysts. No evidence for enhancement to suggest renal malignancy. 2. Few subcentimeter peripheral hepatic arterial enhancing foci likely representing vascular shunts v ersus flash filling hemangiomas. [facility], , 07/07/2024 8:43 AM
== END | disposition home or self-care (01) ==
LOC: RADMRIMAIN 05:47
PROVIDERS: ATTEND Family Medicine
DX: N28.1 Cyst of kidney, acquired (principal); N28.89 Other specified disorders of kidney and ureter
CPT/HCPCS: 74183; A9585